=== PATIENT | male | born 1950 | race Caucasian/White ===

== ENCOUNTER → 2019-05-22 | Outpatient (CLI) | payer MEDICARE ==
--- NOTE | 2019-05-22 20:34 | CT ---
EXAM DESCRIPTION: Head w/wo Contrast: Computed Tomography. CLINICAL HISTORY: TRANSIENT CEREBRAL ISCHEMIC ATTACK, UNSPECIFIED COMPARISON: None. TECHNIQUE: Spiral -axial scans through the head and brain at 2.5 x 20 mm intervals, without and with nonionic IV contrast. Coronal and sagittal 2.0 mm reconstructions, without and with IV contrast. No adverse reactions. Total Exam DLP: 1504.95 mGy-cm. This exam was performed according to our departmental CT dose-optimization program which includes automated exposure control, adjustment of the mA and/or kV according to patient size and/or use of iterative reconstruction technique; to reduce radiation dose to as low as reasonably achievable (ALARA). FINDINGS: No hemorrhage. No mass-effect and no midline shift. Normal contrast enhancement. Normal sultana-white matter differentiation. No abnormal radiodense material in the brain parenchyma.Vascular calcifications not present; physiologic calcifications in the pineal gland and choroid plexus. No effacement or displacement of the ventricles, CSF spaces, or subdural spaces. Minimal prominence of the cortical sulci bilaterally is physiologic. Normal contrast enhancement. No extra axial fluid collection or hemorrhage. No gross abnormalities of the bony calvarium. No unusual enhancement in the [place]. IMPRESSION: 1. No hemorrhage. No mass effect or midline shift.. No abnormal contrast enhancement or mass effect. Normal cortical involution for patient's age bilaterally symmetric. 2. CT scans are insensitive for detecting small CVA's in the first 24 hours after onset. Evaluation of the brain stem is also limited. If symptoms persist, consider MRI scan of the brain with diffusion imaging. Electronically signed by: Ortiz De Los Santos MD 05/22/2019 8:33 PM CDT
== END ==
LOC: LAB.O 11:36
PROVIDERS: ATTEND Nurse Practitioner Family
DX: I20.9 Angina pectoris, unspecified (principal); G45.9 Transient cerebral ischemic attack, unspecified